=== PATIENT | female | born 1935 | race Caucasian/White ===

== ENCOUNTER → 2016-08-05 | Outpatient (CLI) | payer MEDICARE ==
[~2016-08-05] MED LIST: AMLODIPINE-BEN1 EAC2 PO; ASPIR 8181 MG PO; ASPIRIN EC81 MG PO; CIPRO500 MG PO; COENZYME Q10200 MG PO; EVISTA 60 MG TA60 MG PO; METRONIDAZOLE250 MG PO; OCUVITE SOFTGE1 EACH PO; TOPROL XL100 MG PO; VITAMIN B-121000 MCG PO; VITAMIN D35000 UNI1 PO; ZOFRAN 4 MG TAB4 MG PO
== END ==
LOC: MAMO 09:50
DX: Z12.31 Encounter for screening mammogram for malignant neoplasm of breast (principal)
CPT/HCPCS: G0202

== ENCOUNTER 2016-09-04 07:32 | Inpatient (IN) | payer MEDICARE ==
[~2016-09-04] VITALS: Ht 167.6 cm; Wt 72.6 kg
[~2016-09-04 07:32] MED LIST changes: -METRONIDAZOLE250 MG PO
[2016-09-04 09:42] LABS: HEMOGLOBIN 13.8 gm/dl (12.3-15.3); RED BLOOD COUNT 4.4 M/UL (4.00-5.10); WHITE BLOOD COUNT 11.7 K/UL (4.5-11.0)
[2016-09-04 10:02] LABS: BUN/CREATININE RATIO 24 (0-10)
[2016-09-05 06:21] LABS: HEMOGLOBIN 11.7 gm/dl (12.3-15.3); RED BLOOD COUNT 3.78 M/UL (4.00-5.10); WHITE BLOOD COUNT 4.6 K/UL (4.5-11.0)
[2016-09-05 06:27] LABS: BUN/CREATININE RATIO 20 (0-10)
[2016-09-06 05:24] LABS: RED BLOOD COUNT 3.9 M/UL (4.00-5.10); WHITE BLOOD COUNT 5.3 K/UL (4.5-11.0)
[2016-09-06 05:56] LABS: BUN/CREATININE RATIO 17 (0-10)
[2016-09-06 06:06] LABS: ADENOVIRUS F 40/41 Not Detected (Negative); ASTROVIRUS Not Detected (Negative); CAMPYLOBACTER Not Detected (Negative); CLOSTRIDIUM DIFFICILE TOX A/B Not Detected (Negative); CRYPTOSPORIDIUM Not Detected (Negative); E.COLI 0157 Not Detected (Negative); ENTAMOEBA HISTOLYTICA Not Detected (Negative); ENTEROAGGREGATIVE E.COLI (EAEC Not Detected (Negative); ENTEROPATHOGENIC E.COLI (EPEC) Not Detected (Negative); ENTEROTOXIGENIC E.COLI (ETEC) Not Detected (Negative); GIARDIA LAMBLIA Not Detected (Negative); NOROVIRUS GI/GII Not Detected (Negative); PLESIOMONAS SHIGELLOIDES Not Detected (Negative); ROTOVIRUS A Not Detected (Negative); SALMONELLA Not Detected (Negative); SAPOVIRUS Not Detected (Negative); SHIG/ENTEROINVAS.ECOLI (EIEC) Not Detected (Negative); SHIGA-LIK TOX.PRO.E.COLI (STEC Not Detected (Negative); VIBRIO Not Detected (Negative); VIBRIO CHOLERAE Not Detected (Negative); YERSINIA ENTEROCOLITICA Not Detected (Negative)
[2016-09-06] MEDS ORDERED: METRONIDAZOLE250 MG PO (13:54)
== END 2016-09-06 14:45 | disposition home or self-care (01) | DRG 392 ==
LOC: ER1 07:32 → ZEROF 13:17 → MED SURG 4 13:17
PROVIDERS: Emergency Medicine; ADMIT Family Medicine
DX: K52.9 Noninfective gastroenteritis and colitis, unspecified (principal); N30.00 Acute cystitis without hematuria; D69.59 Other secondary thrombocytopenia; I10 Essential (primary) hypertension; K57.30 Diverticulosis of large intestine without perforation or abscess without bleeding; I73.9 Peripheral vascular disease, unspecified; Z87.19 Personal history of other diseases of the digestive system; Z79.82 Long term (current) use of aspirin; Z88.8 Allergy status to other drugs, medicaments and biological substances
CPT/HCPCS: 36415; 80048; 80053; 82272; 83605; 84484; 85025; 85027; 87077; 87086; 87186; 87507; 89055; 93005; 96361; 96374; 96375; 99285; J1956; J2405; J2550; J7050; Q0163; Q9962

== ENCOUNTER → 2016-09-25 | Outpatient (CLI) | payer MEDICARE ==
[~2016-09-25] MED LIST changes: +METRONIDAZOLE250 MG PO
[2016-09-25 08:41] LABS: HEMOGLOBIN 12.7 gm/dl (12.3-15.3); RED BLOOD COUNT 4.11 M/UL (4.00-5.10); WHITE BLOOD COUNT 6.4 K/UL (4.5-11.0)
[2016-09-25 08:56] LABS: BUN/CREATININE RATIO 20 (0-10)
== END ==
LOC: OPSV 08:00
PROVIDERS: Internal Medicine
DX: R19.7 Diarrhea, unspecified (principal); E86.0 Dehydration; K52.9 Noninfective gastroenteritis and colitis, unspecified
CPT/HCPCS: 80048; 80076; 85027; 96360; 96361

== ENCOUNTER → 2020-10-08 | Outpatient (CLI) | payer MEDICARE ==
[~2020-10-08] MED LIST changes: +AUGMENTIN 875-1 EACH PO
== END ==
LOC: MAMO 09:30
DX: Z12.31 Encounter for screening mammogram for malignant neoplasm of breast (principal)
CPT/HCPCS: 77063; 77067

== ENCOUNTER 2020-10-27 11:53 | Observation (INO) | payer MEDICARE ==
[~2020-10-27] VITALS: Ht 165.1 cm; Wt 82.1 kg
[~2020-10-27 11:53] MED LIST changes: -AUGMENTIN 875-1 EACH PO
[2020-10-27 13:03] LABS: HEMOGLOBIN 13.3 gm/dl (12.3-15.3); RED BLOOD COUNT 4.12 M/UL (4.00-5.10); WHITE BLOOD COUNT 5.1 K/UL (4.5-11.0)
[2020-10-27 13:31] LABS: BUN/CREATININE RATIO 12 (0-10)
[2020-10-28 06:10] LABS: HEMOGLOBIN 12.2 gm/dl (12.3-15.3); RED BLOOD COUNT 3.84 M/UL (4.00-5.10)
[2020-10-28 06:12] LABS: WHITE BLOOD COUNT 6.8 K/UL (4.5-11.0)
[2020-10-28] MEDS ORDERED: AUGMENTIN 875-1 EACH PO (10:46)
== END 2020-10-28 15:04 | disposition home or self-care (01) ==
LOC: ER1 11:53 → CDU 17:17 → MED SURG 4 19:01
PROVIDERS: Physician Assistant; Physician Assistant Medical; ADMIT Internal Medicine
DX: J96.01 Acute respiratory failure with hypoxia (principal); J20.9 Acute bronchitis, unspecified; K52.9 Noninfective gastroenteritis and colitis, unspecified; I10 Essential (primary) hypertension; D69.6 Thrombocytopenia, unspecified; Z20.822 Contact with and (suspected) exposure to COVID-19; Z88.6 Allergy status to analgesic agent; Z88.8 Allergy status to other drugs, medicaments and biological substances; Z79.899 Other long term (current) drug therapy
CPT/HCPCS: 0240U; 36600; 70450; 71045; 80048; 80053; 81001; 82550; 82553; 82803; 83605; 83735; 83874; 84484; 85025; 85027; 87040; 87081; 87086; 87880; 93005; 96374; 99285; G0378; J0696; J7030; Q9967

== ENCOUNTER → 2021-10-11 | Outpatient (CLI) | payer MEDICARE ==
[~2021-10-11] MED LIST changes: +AUGMENTIN 875-1 EACH PO
== END ==
LOC: MAMO 08:49
DX: Z12.31 Encounter for screening mammogram for malignant neoplasm of breast (principal)
CPT/HCPCS: 77063; 77067